=== PATIENT | female | born 1945 | race Caucasian/White ===

== ENCOUNTER 2016-12-04 17:51 | Emergency (ER) | payer MEDICARE ==
[~2016-12-04] VITALS: Ht 172.7 cm; Wt 107.0 kg
[2016-12-04] MEDS ORDERED: DOXYCYC MONO100 M1 PO (18:37)
[2016-12-04] MEDS ORDERED: BENADRYL25 M1 PO (18:37)
[2016-12-04 18:40] VITALS: BP 186/84
== END 2016-12-04 18:40 | disposition home or self-care (01) ==
LOC: ED 17:51
DX: T63.481A Toxic effect of venom of other arthropod, accidental (unintentional), initial encounter (principal); Y92.007 Garden or yard of unspecified non-institutional (private) residence as the place of occurrence of the external cause